=== PATIENT | female | born 1975 | race Caucasian/White ===

== ENCOUNTER 2024-10-16 10:38 | Emergency (ER) | payer BC, SELFPAY ==
[2024-10-16 11:01] VITALS: BP 132/79
--- NOTE | 2024-10-16 11:07 | ED.GENMED ---
ED Provider Triage
<Dejuan Gore PA-C - Last Filed: 10/16/24 13:37>
-
Patient seen by provider in Triage?: Seen in Triage
Attestation: A medical screening examination has been initiated by a qualified medical provider. Based on the assessment performed at this time, it has been determined that an emergent medical condition may exist and the patient has been informed
that further medical evaluation and possible additional diagnostic testing may be needed.
HPI: 49-year-old otherwise healthy female with 4 to 5 days worth of painful swelling around the left eye. She states it started as white dots in the corner of her eye and now since spread. She notes pressure. She was seen by the eye doctor and
has been on Augmentin for 3 days without any significant relief. There is a lesion noted to the medial aspect of the left eye on exam. Question cellulitis versus preseptal involvement versus shingles. Labs ordered given pain behind the eye, CT of
orbits with IV contrast ordered.
GENERAL: Alert , in no apparent distress
EYE: No visual abnormalities.
NECK: Trachea midline
ENT: No visible abnormalities.
LUNGS: No acute respiratory distress
NEUROLOGICAL: Alert and oriented
SKIN: Skin intact. No visible changes.
MUSCULOSKELETAL: Moving extremities normally
PSYCH: Normal and appropriate interaction.
This is a medical evaluation conducted in person to initiate diagnostic evaluation and provide initial therapeutics. Please see further documentation by the treating clinician.
History of Present Illness
<Dejuan Gore PA-C - Last Filed: 10/16/24 13:37>
General
Chief Complaint: Eye Problems
Source: patient
Exam Limitations: none
Time Seen by Provider: 10/16/24 11:55
History of Present Illness
History of Present Illness:
49-year-old otherwise healthy female presents with 5 days worth of left-sided headache with associated swelling in the periorbital region around the left eye. She also noted lesions on the upper eyelid the onset of her symptoms that look like
little white dots initially. Since then has turned into more of a scab in this area. She has been seen by ophthalmology and started on Augmentin for possible periorbital cellulitis. She has been on this for several doses without relief and notes
more symptoms.
Phy Exam
<Dejuan Gore PA-C - Last Filed: 10/16/24 13:37>
Physical Exam
Physical Exam:
General: Well appearing female NAD
HEENT: NC/AT : There is soft tissue swelling noted in the periorbital region the left eye. Pupils equal round reactive to light. Extraocular motions are intact. There is no ptosis. There is a lesion over the medial aspect of the left upper
eyelid. Question possible vesicle. Left eye examined with fluorescein stain. There is no stain uptake ulcer or dendritic lesion or foreign body on exam. The remaining part of the face is without a rash. The ears are within normal limits
Course
<Dejuan Gore PA-C - Last Filed: 10/16/24 13:37>
Orders/Labs/Results
Orders:
Orders
10/16/24 11:03
CT Orbits With Iv Contrast Urgent
Comment:
Reason For Exam: left eye pain/swelling/infection
10/16/24 11:05
Test Result ONCE
10/16/24 11:36
Complete Blood Count/With Diff Urgent
Comprehensive Metabolic Panel Urgent
HCG, Serum Qualitative Screen Urgent
Abnormal Lab Results
10/16/24
11:36
RBC 4.18 L 10^6/uL
(4.20-5.40)
MCH 34.7 H pg
(27.0-31.0)
10/16/24 11:36
10/16/24 11:36
Vital Signs
Initial and Last Documented VS:
Initial Vital Signs
Temp Pulse Resp BP Pulse Ox
98.4 F 91 18 132/79 100
02/26/25 11:01 10/16/24 11:01 10/16/24 11:01 10/16/24 11:01 10/16/24 11:01
Last Documented Vital Signs
Temp Pulse Resp BP Pulse Ox
98.4 F 91 18 132/79 100
10/16/24 11:01 10/16/24 11:01 10/16/24 11:01 10/16/24 11:01 10/16/24 11:01
Sharonlt;Milind Moeller, - Last Filed: 10/16/24 13:06>
Orders/Labs/Results
Orders:
Orders
10/16/24 11:03
CT Orbits With Iv Contrast Urgent
Comment:
Reason For Exam: left eye pain/swelling/infection
10/16/24 11:05
Test Result ONCE
10/16/24 11:36
Complete Blood Count/With Diff Urgent
Comprehensive Metabolic Panel Urgent
HCG, Serum Qualitative Screen Urgent
Abnormal Lab Results
10/16/24
11:36
RBC 4.18 L 10^6/uL
(4.20-5.40)
MCH 34.7 H pg
(27.0-31.0)
10/16/24 11:36
10/16/24 11:36
Vital Signs
Initial and Last Documented VS:
Initial Vital Signs
Temp Pulse Resp BP Pulse Ox
98.4 F 91 18 132/79 100
10/16/24 11:01 10/16/24 11:01 10/16/24 11:01 10/16/24 11:01 10/16/24 11:01
Last Documented Vital Signs
Temp Pulse Resp BP Pulse Ox
98.4 F 91 18 132/79 100
10/16/24 11:01 10/16/24 11:01 10/16/24 11:01 10/16/24 11:01 10/16/24 11:01
<Dejuan Gore PA-C - Last Filed: 10/16/24 13:37>
MDM/Problems Addressed
Differential Diagnosis Includes:
Swelling around left eye question periorbital cellulitis versus septal cellulitis versus shingles. No evidence of eye involvement on the cornea.
Labs pending CT pending.
<Dejuan Gore PA-C - Last Filed: 10/16/24 13:37>
*Critical Care Note
Total Time (30-74mins, 75-104mins- exclusive of procedures): Not Applicable
<Dejuan Gore PA-C - Last Filed: 10/16/24 13:37>
Update Note
Update Note:
CT orbits shows periorbital swelling but no orbital cellulitis. No abscess. Exam consistent potentially for herpes zoster. Discussed with emergency room attending saw the patient as well. There is no fluorescein uptake on the surface of the eye.
Will add Valtrex or Augmentin and stable for discharge
ED Attending Note
<Dejuan Gore PA-C - Last Filed: 10/16/24 13:37>
-
Portions of this chart may have been created with voice recognition software.� Occasional wrong word or��sound alike� substitutions may have occurred due to the inherent limitations of voice recognition software.
<Milind Moeller, - Last Filed: 10/16/24 13:06>
ED Attending Note
Patient seen and examined by attending physician: Yes
I performed a history and physical exam of patient and discussed management with resident, I reviewed resident's note and agree with documented findings and plan of care.: Yes
ED Attending Note:
I agree with Yobani's note.
Pt with erythema, swelling and discomfort around left eye. Also headache in the retro-orbital region radiating to the temporal and occipital scalp. Pt feels not much improvement afer starting Augmentin
PE
Scabbed lesion medial upper lid wth mild surrounding erythema and swelling. Eye itself appears normal.
? zoster. No uptake of fluorescene to suggest eye involvement. If CT negative, add Valtrex.
Discharge Plan
Departure
Patient Disposition: Home (Routine Discharge)
Date of Disposition: 10/16/24
Time of Disposition: 13:36
Patient with high blood pressure during this ER visit?: No
Discharge Problem:
Shingles
Instructions: Shingles
Prescriptions:
New
valacyclovir [Valtrex] 1 gram tablet
1,000 mg PO TID Qty: 30 0RF
Referrals:
NONE,* [Family Provider] -
Activity Restrictions/Additional Instructions:
Continue Augmentin. Start Valtrex and take as directed. Please follow-up with your eye doctor. Return if needed otherwise
Interventions
Interventions:
*Risk Screen - Suicide Last Done: 10/16/24 11:01
*General Assessment Last Done: 10/16/24 11:01
*Neglect/Abuse Screening Last Done: 10/16/24 11:01
Discharge Date and Time
Print Language: CROATIAN
[2024-10-16 11:51] LABS: % Basophils 0.4 % (0-2); % Eosinophils 0.9 % (0-6); % Immature Granulocytes 0.3 % (0-0.5); % Lymphocytes 23.9 % (20.5-51.1); % Monocytes 7.2 % (1.7-9.3); % Neutrophils 67.3 % (42.2-75.2); Absolute Eosinophils 0.1 10^3/uL (0-0.7); Absolute Lymphocytes 1.6 10^3/uL (1.2-3.4); Absolute Monocytes 0.5 10^3/uL (0.1-0.6); Absolute Neutrophils 4.6 10^3/uL (1.4-6.5); Hemoglobin 14.5 g/dL (12.0-16.0); Mean Corp Hgb Conc. 36.3 g/dL (33.0-37.0); Mean Corpuscular Hgb 34.7 pg (27.0-31.0); Mean Corpuscular Volume 95.7 fL (81.0-99.0); Mean Platelet Volume 9.7 fL (7.4-10.4); Nucleated Red Blood Cells % 0 %; Platelet Count 264 10^3/uL (130-400); Red Blood Cell Count 4.18 10^6/uL (4.20-5.40); Red Cell Dist. Width 11.6 % (11.5-14.5); White Blood Cell Count 6.8 10^3/uL (4.8-10.8)
[2024-10-16 12:01] LABS: HCG, Serum Qualitative Screen Negative
[2024-10-16 12:08] LABS: ALT (SGPT) 22 U/L (0-35); AST (SGOT) 21 U/L (14-36); Albumin 4.2 g/dl (3.5-5.0); Alkaline Phosphatase 64 U/L (38-126); Blood Urea Nitrogen 13 mg/dl (7-17); Calcium 9.8 mg/dl (8.4-10.2); Carbon Dioxide 26 mmol/L (22-30); Chloride 104 mmol/L (98-107); Glucose 95 mg/dl (70-99); Potassium 4.2 mmol/L (3.5-5.1); Sodium 137 mmol/L (135-145); Total Bilirubin 0.7 mg/dl (0.2-1.3); Total Protein 6.9 g/dl (6.3-8.2); eGFR > 60.00
[2024-10-16 13:48] VITALS: BP 105/71
== END 2024-10-16 13:52 | disposition home or self-care (01) ==
LOC: EMR 10:38
PROVIDERS: Physician Assistant; EMERGENCY PHYSICIAN Emergency Medicine
DX: B02.9 Zoster without complications (principal)
CPT/HCPCS: 99285; 70481; 80053; 84703; 85025; Q9967